=== PATIENT | male | born 1985 | race Caucasian/White ===

== ENCOUNTER 2017-12-12 15:13 | Emergency (ER) | payer MEDICAID ==
[2017-12-12 15:31] VITALS: BP 128/73; PULSE 82; RESP 18; TEMP 98.2; O2SAT 100
[2017-12-12] MEDS ORDERED: Sodium Chloride 0.9% 1,000 ML IV STA (16:15)
[2017-12-12 16:51] LABS: BASO % 0.6 % (0.0-2.0); EOS # 0.3 K/uL (0.0-0.7); EOS % 5.1 % (0.0-4.0); HEMOGLOBIN 14.6 g/dL (12.0-18.0); LYMPH # 1.7 K/uL (1.0-4.3); LYMPH % 32.2 % (20.0-40.0); MEAN CELL VOLUME 79.8 fl (80.0-94.0); MEAN CORPUSCULAR HEMOGLOBIN 26.8 pg (27.0-31.0); MEAN CORPUSCULAR HGB CONC 33.6 g/dL (33.0-37.0); MEAN PLATELET VOLUME 7.9 fl (7.2-11.7); MONO # 0.5 K/uL (0.0-0.8); MONO % 9.6 % (0.0-10.0); NEUT # 2.8 K/uL (1.8-7.0); NEUT % 52.5 % (50.0-75.0); NRBC % 0.1 % (0.0-0.0); RBC 5.45 Mil/uL (4.40-5.90); RED CELL DISTRIBUTION WIDTH 13.7 % (11.5-14.5); WHITE BLOOD COUNT 5.3 K/uL (4.8-10.8)
--- NOTE | 2017-12-12 16:59 | ED PDOC ---
HPI: General Adult Time Seen by Provider: 12/12/17 15:51 Chief Complaint (Nursing): High Blood Sugar History Per: Patient Additional Complaint(s): Pt. states he is running out of insulin. States he recently moved from [place] and is now going to live in [place] but has not received his [place] medicaid and does not have a PMD here. States yesterday he noticed he's had increased thirst and urinary frequency. Denies chest pain, SOB, palpitations, hemotysis, N/V/D, fever , dysuria, hematuria. Against Medical Advice - AMA Patient Left Against Medical Advice: The patient declines admission to the hospital and wishes to leave the Emergency Department. This action is against my medical advice. This decision was made with informed refusal. The patient was told that admission to the hospital is necessary. Explanation of the reasons why were discussed. The risks of leaving were explained to the patient and include, but are not limited to, worsening of known or currently unknown conditions, permanent disability and from undiagnosed or untreated conditions. The patient has the capacity to make this informed decision and understands my explanation of the current medical problem and risks of leaving. The patient voluntarily accepts these risks and signed an AMA form documenting our conversation. The patient was given the opportunity to ask questions and reconsider. The patient was encouraged to return to the Emergency Department at any time for further care. 12/12/17 17:51 Pt. refused insulin and IV fluids. Past Medical History Reviewed: Historical Data, Nursing Documentation, Vital Signs Vital Signs: Last Vital Signs Temp 98.2 F 12/12/17 15:27 Pulse 82 12/12/17 15:27 Resp 18 12/12/17 15:27 BP 128/73 12/12/17 15:27 Pulse Ox 100 12/12/17 17:01 - Medical History PMH: Diabetes (Type 1) - Surgical History Surgical History: No Surg Hx - Family History Family History: States: No Known Family Hx - Home Medications Home Medications: Ambulatory Orders Medication Instructions Recorded Insulin NPH Hum/Reg Insulin Hm 25 unit SC BID 12/12/17 [Humulin 70-30 Vial] Insulin NPH Hum/Reg Insulin Hm 25 unit SC BID #60 vial 12/12/17 [Humulin 70/30 70 U/ml-30 U/ml 10 ml] - Allergies Allergies/Adverse Reactions: Allergies Allergy/AdvReac Type Severity Reaction Status Date / Time No Known Allergies Allergy Verified 12/12/17 15:27 Review of Systems ROS Statement: Except As Marked, All Systems Reviewed And Found Negative Genitourinary Male: Positive for: Frequency Physical Exam - Physical Exam Appears: Positive for: Well, Non-toxic, No Acute Distress Skin: Positive for: Normal Color, Warm. Negative for: Rash Eye Exam: Positive for: EOMI, Normal appearance, PERRL ENT: Positive for: Normal ENT Inspection Neck: Positive for: Normal, Painless ROM Cardiovascular/Chest: Positive for: Regular Rate, Rhythm. Negative for: Tachycardia Respiratory: Positive for: Normal Breath Sounds. Negative for: Respiratory Distress Gastrointestinal/Abdominal: Positive for: Normal Exam, Soft. Negative for: Tenderness Neurologic/Psych: Positive for: Alert, Oriented - Laboratory Results Result Diagrams: 12/12/17 16:46 12/12/17 16:46 - ECG O2 Sat by Pulse Oximetry: 100 - Progress ED Course And Treament: FSBS: 252 Labs, IV NS bolus x 1 ordered. Pt. refused NS. Disposition - Clinical Impression Clinical Impression: Left against medical advice, Hyperglycemia - Disposition Referrals: [facility] [Outside] [facility] [Outside] Disposition Time: 17:51 Condition: FAIR Additional Instructions: CALL THE CLINIC TO MAKE AN APPOINTMENT FILL YOUR PRESCRIPTION FOR INSULIN Prescriptions: Insulin NPH Hum/Reg Insulin Hm [Humulin 70/30 70 U/ml-30 U/ml 10 ml] 25 unit SC BID #60 vial Instructions: Hyperglycemia, Adult (DC), Leaving Against Medical Advice, Diabetes and Diet Forms: [facility] (Samoan) Print Language: KHMER
[2017-12-12 17:12] LABS: URINE BILIRUBIN NEGATIVE (NEGATIVE); URINE BLOOD NEGATIVE (NEGATIVE); URINE CLARITY CLEAR (Clear); URINE COLOR YELLOW (YELLOW); URINE GLUCOSE (UA) >=500 mg/dL (Normal); URINE LEUKOCYTE ESTERASE NEG Leu/uL (Negative); URINE PROTEIN NEGATIVE (NEGATIVE); URINE UROBILINOGEN 0.2-1.0 mg/dL (0.2-1.0)
[2017-12-12 17:18] LABS: ALB/GLOB RATIO 1.3 (1.0-2.1); ALBUMIN 4.3 g/dL (3.5-5.0); ALT/SGPT 35 U/L (21-72); AST/SGOT 21 U/L (17-59); BLOOD UREA NITROGEN 16 mg/dl (9-20); CALCIUM 9.4 mg/dL (8.4-10.2); GFR AFRICAN-AMERICAN > 60; GFR NON-AFRICAN AMERICAN > 60
[2017-12-12] MEDS ORDERED: Insulin Regular 100 units/ml IVP STA (17:25)
== END 2017-12-12 18:05 | disposition left against medical advice (07) ==
LOC: H.ER 15:13
DX: E10.65 Type 1 diabetes mellitus with hyperglycemia (principal); Z79.4 Long term (current) use of insulin